=== PATIENT | female | born 1980 | race Caucasian/White ===

== ENCOUNTER 2016-12-16 10:05 | Day surgery (SDC) | payer OTHER ==
[2016-12-16 10:10] VITALS: BMI 33.3
[2016-12-16] MEDS ORDERED: ONDANSETRON 4 MG/2 ML VIAL IVPUSH ONE (11:06)
[2016-12-16] MEDS ORDERED: SODIUM CHLORIDE 1,000 ML IV STA (11:06)
--- NOTE | 2016-12-16 11:49 | PDOC ---
History of Present Illness - General History Source: Patient Exam Limitations: No Limitations - History of Present Illness Initial Comments: 12/16/16 11:49 HPI: This 36 year old obese female with c/o RUQ abd pain, nausea, vomiting, for 4 days. She denies fever, chills, diarrhea, constipation, headache, flu like symptoms. She ate on friday macaroni salad and later that evening developed nausea and vomiting. She has been eating small bits at a time and had last vomint this morning. Chief Compliant: RUQ pain, n, v Pain location:pain Duration:4 days Modifying factors:none Quality:cramp Radiating: Severity: Time: PMH: c section 4 months ago FH: Pt has not recently traveled outside the country in the last 30 days. Pt has not been in contact with people who have traveled out of the country, in contact with people who have been ill with fever, n, v, d. SH: smoking use: NONE illicit drug use: NONE alcohol use: NONE PSH: Home med use noted on DEC Allergies:shellfish Immunizations: PCP: does not have one PROFESSOR/NURSE ANESTHETIST: LMP:2/7 G P : <Maxine Muhammad - Last Filed: 12/16/16 15:59> <Franco Campbell - Last Filed: 12/16/16 20:39> - General Chief Complaint: Pain, Acute Stated Complaint: VOMITING, ABD PAIN, BACK PAIN Time Seen by Provider: 12/16/16 11:01 Past History - Past Medical History Asthma: No Cancer: No Cardiac Disorders: No Diabetes: No HTN: No Seizures: No Thyroid Disease: No Other medical history: PT DENIES MEDICAL HX - Psycho/Social/Smoking Cessation Hx Anxiety: No Suicidal Ideation: No Smoking Status: No Smoking History: Never smoked Have you smoked in the past 12 months: No Number of Cigarettes Smoked Daily: 0 Hx Alcohol Use: No Drug/Substance Use Hx: No Hx Substance Use Treatment: No <Maxine Muhammad - Last Filed: 12/16/16 15:59> <Franco Campbell - Last Filed: 12/16/16 20:39> - Past Medical History Allergies/Adverse Reactions: Allergies Allergy/AdvReac Type Severity Reaction Status Date / Time shellfish derived Allergy Mild Rash Verified 12/16/16 10:10 Home Medications: Ambulatory Orders NK [No Known Home Medication] 12/16/16 Review of Systems - Review of Systems Able to Perform ROS?: Yes Comments:: 12/16/16 11:53 General statement: " I have abd pain and n, v" Hematology: neg history of bleeding/blood thinners Skin: Neg for lesions, rash, bruising. HEENT: Neg symptoms Respiratory: Neg SOB or difficulty in breathing Cardiac: Neg chest pain GI: + RUQ pain, with n/v, Last BM this morning and was formed and of normal consistancy. : Neg problems on voiding MS: Neg for joint pain/stiffness, no edema Neuro: Neg for LOC, weakness, Endocrine: Neg for excess thirst/hunger, cold/heat intolerance, excess sweating Allergies: Neg for drug allergies <Maxine Muhammad - Last Filed: 12/16/16 15:59> *Physical Exam - Vital Signs Last Vital Signs Temp Pulse Resp BP Pulse Ox 97.5 F L 73 16 130/80 97 12/16/16 10:08 12/16/16 10:08 12/16/16 10:08 12/16/16 10:08 12/16/16 10:08 - Physical Exam Comments: 12/16/16 11:54 General Appearance: This well appearing 36 steven old female V/S: hemodynamically stable, afebrile Skin: WNL of pt's skin color, no signs of pallor, mottling, cyanosis Head:symmetrical Eyes: EOM's intact, PERRLA Ears: denies pain Nose: patent Throat: lips, teeth, gums, tongue, buccal mucos pink and moist Lungs: Chest symmetry equal. Cap refill <3 seconds. Lung sounds clear Cardiac: PMI at R 4MCL space, pos S1 and S2, regular rate. Abdomen: Soft, round, mildly tender to the RUQ area : Not observed Muscularskeletal: Gait steady, ambulated in to ER, no edema +PMS Neuro: AAOx3, cognitively intact, speech clear and appropriate. <Maxine Muhammad - Last Filed: 12/16/16 15:59> - Vital Signs Last Vital Signs Temp Pulse Resp BP Pulse Ox 97.5 F L 73 16 130/80 97 12/16/16 10:08 12/16/16 10:08 12/16/16 10:08 12/16/16 10:08 12/16/16 10:08 <Franco Campbell - Last Filed: 12/16/16 20:39> ED Treatment Course - LABORATORY CBC & Chemistry Diagram: 12/16/16 11:37 12/16/16 11:37 - RADIOLOGY Radiology Studies Ordered: Category Date Time Status GALLBLADDER US [US] Stat Ultrasound 12/16/16 11:06 Ordered <Maxine Muhammad - Last Filed: 12/16/16 15:59> - LABORATORY CBC & Chemistry Diagram: 12/16/16 11:37 12/16/16 11:37 - ADDITIONAL ORDERS Additional order review: Laboratory Results 12/16/16 12/16/16 12/16/16 11:37 11:37 11:33 Sodium 142 Potassium 4.1 Chloride 108 H Carbon Dioxide 24 Anion Gap 10 BUN 8 D Creatinine 0.8 D Creat Clearance w eGFR > 60 Random Glucose 91 D Calcium 8.9 Total Bilirubin 0.3 D Direct Bilirubin 0.1 AST 12 L D ALT 22 Alkaline Phosphatase 91 Total Protein 7.3 Albumin 4.0 D Lipase 120 Serum , Qual Negative 12/16/16 11:37 RBC 5.14 D MCV 75.9 L MCHC 32.0 RDW 14.5 MPV 8.3 Neutrophils % 78.7 Lymphocytes % 16.3 D Monocytes % 3.9 Eosinophils % 0.4 Basophils % 0.7 - Medications Given in the ED: ED Medications Discontinued Medications Generic Name Dose Route Start Last Admin Trade Name Freq PRN Reason Stop Dose Admin Sodium Chloride 1,000 mls @ 1,000 mls/hr 12/16/16 11:06 12/16/16 11:40 Normal Saline - IV 12/16/16 12:05 1,000 mls/hr ASDIR STA Administration Ibuprofen 400 mg 12/16/16 14:47 12/16/16 15:11 Motrin - PO 12/16/16 14:48 400 mg ONCE ONE Administration Ondansetron HCl 4 mg 12/16/16 11:06 12/16/16 11:40 Zofran Injection IVPUSH 12/16/16 11:07 4 mg ONCE ONE Administration <Franco Campbell D - Last Filed: 12/16/16 20:39> Medical Decision Making - Medical Decision Making 12/16/16 11:55 This 36 yr old female with c/o RUQ pain, n, v DD: r/o gall stones or cholelithiasis 1. GB u/s 2. Labs 3. UA 4. NPO, IVF 12/16/16 14:44 GB u/s reveals multiple gallstones with some mild thickening but no dilatation to the CBD Pt states nausea subsided but now has headache. Motrin prescribed. Surgical consult called into Dr. Ortiz to evaluate pt JULIETA Hanna seen pt and will contact Dr. Ortiz to see pt. 12/16/16 16:00 Dr. Ortiz has seen the patient and the patient will be admitted to observation admission under him for evaluation of her right upper quadrant abdominal pain and gallstones. <Maxine Muhammad - Last Filed: 12/16/16 15:59> *DC/Admit/Observation/Transfer - Discharge Dispostion Admit: Yes <Maxine Muhammad - Last Filed: 12/16/16 15:59> - Discharge Dispostion Admit: Yes <Franco Campbell - Last Filed: 12/16/16 20:39> Diagnosis at time of Disposition: Gallstones - Discharge Dispostion Condition at time of disposition: Stable
[2016-12-16 11:53] LABS: BASOPHIL 0.7 % (0-2.0); EOSINOPHIL 0.4 % (0-4.5); MCH 24.3 pg (25.7-33.7); MEAN CELL VOLUME 75.9 fl (80-96); MEAN PLT VOLUME 8.3 fl (7.5-11.1); NEUTROPHILS 78.7 % (42.8-82.8); PLATELET COUNT 385 K/MM3 (134-434); RDW 14.5 % (11.6-15.6); WHITE BLOOD COUNT 10.8 K/mm3 (4.0-10.0)
[2016-12-16 12:08] LABS: ALK PHOS 91 U/L (45-117); ANION GAP 10 (8-16); BILIRUBIN,DIRECT 0.1 mg/dL (0.0-0.2); BILIRUBIN,TOTAL 0.3 mg/dL (0.2-1.0); CALCIUM 8.9 mg/dL (8.5-10.1); CO2 24 mmol/L (21-32); CREATININE 0.8 mg/dL (0.55-1.02); GLUCOSE,RANDOM 91 mg/dL (74-106); SGOT/AST 12 U/L (15-37); SGPT/ALT 22 U/L (12-78); TOT PROT 7.3 g/dl (6.4-8.2)
[2016-12-16] MEDS ORDERED: IBUPROFEN 400 MG TABLET (FP) PO ONE ×2 (14:47→15:12)
[2016-12-16] MEDS ORDERED: SODIUM CHLORIDE 1,000 ML IV SCH (15:00)
--- NOTE | 2016-12-16 15:51 | HP ---
Admitting History and Physical - Admission History of Present Illness: The patient is a 36 yo female who present to the ER with complaints of upper abd pain, nausea and emesis since Friday night. She has no prior history of these symptoms and wasn not awre that she had gallstones. Her pain improved but she continued to vomit. While is the ER she has been treated with anti-emetics and feels better, she is having mild pain symptoms. History Source: Patient Limitations to Obtaining History: No Limitations - Past Medical History Cardiovascular: No: Deep Vein Thrombosis Pulmonary: No: Asthma, Bronchitis Gastrointestinal: No: Constipation, GERD Renal/: No: Hematuria, Renal Calculi, UTI ...: No Heme/Onc: No: Bleeding Disorder - Past Surgical History Past Surgical History: Yes: Additional Past Surgical History: breast reduction/liposuction - Smoking History Smoking history: Never smoked Have you smoked in the past 12 months: No Aproximately how many cigarettes per day: 0 - Alcohol/Substance Use Hx Alcohol Use: No Home Medications - Allergies Allergies/Adverse Reactions: Allergies Allergy/AdvReac Type Severity Reaction Status Date / Time shellfish derived Allergy Mild Rash Verified 12/16/16 10:10 - Home Medications Home Medications: Ambulatory Orders NK [No Known Home Medication] 12/16/16 Review of Systems - Review of Systems Constitutional: denies: Chills, Fever Neck: denies: Decreased ROM, Pain on Movement Cardiovascular: denies: Chest Pain, Palpitations Respiratory: reports: Cough (had a cough and fever last week which have improved.) Gastrointestinal: reports: Abdominal Pain (upper abd/RUQ gling to back), Nausea , Vomiting, Vomiting Blood Genitourinary: denies: Burning, Dysuria Musculoskeletal: denies: Extremity Pain, Joint Swelling Neurological: denies: Headache, Seizure Hematology/Lymphatic: denies: Easily Bruised, Excessive Bleeding Physical Examination Vital Signs: Vital Signs Temperature 97.5 F L 12/16/16 10:08 Pulse Rate 73 12/16/16 10:08 Respiratory Rate 16 12/16/16 10:08 Blood Pressure 130/80 12/16/16 10:08 O2 Sat by Pulse Oximetry (%) 97 12/16/16 10:08 Constitutional: Yes: Well Nourished, Calm Eyes: Yes: WNL, Conjunctiva Clear, EOM Intact HENT: Yes: WNL, Atraumatic, Normocephalic Neck: Yes: WNL, Supple, Trachea Midline Cardiovascular: Yes: WNL, Regular Rate and Rhythm Respiratory: Yes: WNL, Regular, CTA Bilaterally Gastrointestinal: Yes: WNL, Soft, Tenderness (RUQ with deep palpation). No: Distention, Tenderness, Rebound Extremities: No: Calf Tenderness, Deformity Edema: No Neurological: Yes: WNL, Alert, Oriented ...Motor Strength: LUE, LLE, RUE, RLE Psychiatric: Yes: WNL, Alert, Oriented Labs: CBC, BMP 12/16/16 11:37 12/16/16 11:37 Hepatic Panel Total Bilirubin 0.3 mg/dL (0.2-1.0) D 12/16/16 11:37 Direct Bilirubin 0.1 mg/dL (0.0-0.2) 12/16/16 11:37 AST 12 U/L (15-37) L D 12/16/16 11:37 ALT 22 U/L (12-78) 12/16/16 11:37 Alkaline Phosphatase 91 U/L (45-117) 12/16/16 11:37 Albumin 4.0 g/dl (3.4-5.0) D 12/16/16 11:37 Laboratory Tests 12/16/16 11:37 Serum , Qual Negative Imaging - Results Ultrasound: Report Reviewed (US- multiple gallstones ? borderline thickness) Problem List - Problems (1) Biliary colic Assessment/Plan: Admit to the surgical service and the patient agrees to a laparocopic cholecystectomy on 12/17. Continue npo/IV hydration IV antiemetics GI/DVT ppx IV/oral pain medication PT seen by myself and Dr. Ortiz Code(s): K80.50 - CALCULUS OF BILE DUCT W/O CHOLANGITIS OR CHOLECYST W/O OBST
[2016-12-16] MEDS ORDERED: ACETAMINOPHEN 325 MG TABLET (FP) PO PRN (15:59)
[2016-12-16] MEDS ORDERED: ONDANSETRON 4 MG/2 ML VIAL IVPB PRN (15:59)
[2016-12-16] MEDS ORDERED: DEXTROSE 5%-0.45% SALINE 1,000 ML IV SCH (16:00)
[2016-12-16] MEDS ORDERED: morphine CARPU-JECT 2 MG/1 ML DISP.SYRIN IVPUSH PRN (16:05)
[2016-12-16] MEDS ORDERED: FAMOTIDINE 20 MG/50 ML IVPB 50 ML IVPB ONE (21:53)
[2016-12-16] MEDS ORDERED: HEPARIN NA (PORCINE) 5,000 UNITS/ML 1ML VIAL ONE (21:53)
[2016-12-16] MEDS ORDERED: ONDANSETRON 4 MG/2 ML VIAL ONE (21:53)
[2016-12-16] MEDS ORDERED: ZOLPIDEM TARTRATE 5 MG TABLET PO PRN (22:00)
[2016-12-16] MEDS ORDERED: FAMOTIDINE 20 MG/50 ML IVPB 50 ML IVPB SCH (22:00)
[2016-12-16] MEDS: HEPARIN NA (PORCINE) 5,000 UNITS/ML 1ML VIAL SQ SCH (22:10)
[2016-12-17] MEDS ORDERED: HEPARIN NA (PORCINE) 5,000 UNITS/ML 1ML VIAL ONE (06:16)
[2016-12-17] MEDS: HEPARIN NA (PORCINE) 5,000 UNITS/ML 1ML VIAL SQ SCH (06:25)
--- NOTE | 2016-12-17 09:37 | PN ---
Progress Note (short form) - Note Progress Note: Patient seen and examined. Patient is still having some RUQ/epigastric abdominal pain, but the pain is tolerable. She has remained NPO. She is having some mild nausea, but no more episodes of vomiting. Last Vital Signs Temp Pulse Resp BP Pulse Ox 97.9 F 60 18 134/72 98 12/17/16 08:07 12/17/16 08:07 12/17/16 08:07 12/17/16 08:07 12/17/16 08:07 Gen: NAD, pleasant and cooperative Neuro: Alert and oriented Cardio: RRR Resp: CTA Abd: obese, soft, nondistended, tender to deep palp RUQ, epigastic region Ext: soft, nontender Problem List - Problems (1) Biliary colic Code(s): K80.50 - CALCULUS OF BILE DUCT W/O CHOLANGITIS OR CHOLECYST W/O OBST (2) Gallstones Assessment/Plan: Continue with plan for OR today for laparoscopic cholecystectomy with Dr. Ortiz Continue NPO/IV fluids Nausea control with IV antiemetics Pain control SCDs Code(s): K80.20 - CALCULUS OF GALLBLADDER W/O CHOLECYSTITIS W/O OBSTRUCTION
[2016-12-17] MEDS ORDERED: MIDAZOLAM HCL 2 MG/2 ML SINGLE DOSE VIAL ONE (15:49)
[2016-12-17] MEDS ORDERED: PROPOFOL 20 ML ONE (15:49)
[2016-12-17] MEDS ORDERED: ROCURONIUM BROMIDE 50 MG/5 ML VIAL ONE (15:49)
[2016-12-17] MEDS ORDERED: ceFAZolin SODIUM 1 GM VIAL ONE (16:05)
[2016-12-17] MEDS ORDERED: ceFAZolin SODIUM 1 GM VIAL IVPB ONE (16:07)
[2016-12-17] MEDS ORDERED: DEXAMETHASONE SOD PHOSPHATE 4 MG/1 ML VIAL ONE (16:32)
[2016-12-17] MEDS ORDERED: KETOROLAC TROMETHAMINE 30 MG/1 ML VIAL ONE (16:32)
[2016-12-17] MEDS ORDERED: BUPIVACAINE HCL/PF 0.5% (5MG/ML) 10 ML VIAL IJ ONE (16:45)
[2016-12-17] MEDS ORDERED: ePHEDrine SULFATE 50 MG/1 ML AMPULE ONE (16:54)
[2016-12-17] MEDS ORDERED: BUPIVACAINE HCL/PF 0.5% (5MG/ML) 10 ML VIAL ONE (17:25)
[2016-12-17] MEDS ORDERED: GLYCOPYRROLATE 0.2 MG/1 ML VIAL ONE (17:33)
[2016-12-17] MEDS ORDERED: NEOSTIGMINE METHYLSULFATE 0.5 MG/ML - 10 ML MDV ONE (17:33)
--- NOTE | 2016-12-17 17:39 | OP ---
Operative Note - Note: Operative Date: 12/17/16 Pre-Operative Diagnosis: biliary colic; cholelithiasis Operation: lap geovani Findings: chronic cholecystitis/cholelithiasis Surgeon: Kar Ortiz Ceramic Engineering Professor: Fallon Hanna Anesthesia: General Specimens Removed: gallbladder and contents Estimated Blood Loss (mls): 20
[2016-12-17] MEDS ORDERED: HYDROmorphone HCL CARPU-JECT 1 MG/1 ML DISP.SYRIN IVPUSH PRN (17:49)
[2016-12-17] MEDS ORDERED: ONDANSETRON 4 MG/2 ML VIAL IVPUSH PRN ×2 (17:49→22:48)
[2016-12-17] MEDS ORDERED: oxyCODONE HCL 5 MG TABLET PO PRN ×3 (17:50→22:49)
--- NOTE | 2016-12-17 17:50 | SURG ---
Surgery Field Pipe Lines Supervisor Note Field Pipe Lines Supervisor: Fallon Hanna PA-C Date of Service: 12/17/16 Diagnosis: biliary colic, cholelithiasis Procedure: laparoscopic cholecystectomy I was present for the entirety of the operative procedure. For further detail, please refer to operative report. Visit type - Case Type Case Type: ED Admission - Emergency Emergency Visit: Yes ED Registration Date: 12/16/16 Care time: The patient presented to the Emergency Department on the above date and was hospitalized for further evaluation of their emergent condition. - New patient This patient is new to me today: No - Critical Care Critical Care patient: Yes Total Critical Care Time: 20
[2016-12-17] MEDS ORDERED: LACTATED RINGERS SOLUTION 1,000 ML IV SCH (18:00)
[2016-12-17] MEDS ORDERED: SODIUM CHLORIDE 1,000 ML IV SCH (18:14)
[2016-12-17] MEDS ORDERED: ACETAMINOPHEN 325 MG TABLET (FP) PO PRN (18:14)
[2016-12-17] MEDS ORDERED: ONDANSETRON 4 MG/2 ML VIAL IVPB PRN ×2 (18:14→22:49)
[2016-12-17] MEDS ORDERED: morphine CARPU-JECT 2 MG/1 ML DISP.SYRIN IVPUSH PRN ×2 (18:14→22:49)
--- NOTE | 2016-12-17 21:30 | EKG ---
Test Reason : Blood Pressure : / mmHG Vent. Rate : 056 BPM Atrial Rate : 056 BPM P-R Int : 134 ms QRS Dur : 092 ms QT Int : 426 ms P-R-T Axes : 015 034 041 degrees QTc Int : 411 ms SINUS BRADYCARDIA OTHERWISE NORMAL ECG NO PREVIOUS ECGS AVAILABLE Confirmed by ERVIN MEDELLIN MD ([id number]) on 12/17/2016 9:30:18 PM Referred By: Confirmed By:ERVIN MEDELLIN MD
[2016-12-17] MEDS ORDERED: HEPARIN NA (PORCINE) 5,000 UNITS/ML 1ML VIAL SQ SCH (22:00)
[2016-12-17] MEDS ORDERED: ZOLPIDEM TARTRATE 5 MG TABLET PO PRN (22:00)
[2016-12-18] MEDS ORDERED: ACETAMINOPHEN 325 MG TABLET (FP) PO PRN (01:02)
[2016-12-18] MEDS: oxyCODONE HCL 5 MG TABLET PO PRN ×2 (01:08→07:45)
[2016-12-18] MEDS ORDERED: HEPARIN NA (PORCINE) 5,000 UNITS/ML 1ML VIAL SQ SCH (06:00)
--- NOTE | 2016-12-18 08:25 | PN ---
Progress Note, Physician Chief Complaint: Pt. pain controlled, no GA complaints. - Current Medication List Current Medications: Active Medications Acetaminophen (Tylenol -) 650 mg PO Q4H PRN PRN Reason: FEVER Heparin Sodium (Porcine) (Heparin -) 5,000 unit SQ TID JB Last Admin: 12/18/16 06:08 Dose: 5,000 unit Hydromorphone HCl (Dilaudid Injection -) 0.5 mg IVPUSH [id number] PRN PRN Reason: PAIN Stop: 12/20/16 17:50 Last Admin: 12/17/16 19:15 Dose: 0.5 mg Lactated Ringer's (Lactated Ringers Solution) 1,000 mls @ 125 mls/hr IV ASDIR JB Sodium Chloride (Normal Saline -) 1,000 mls @ 125 mls/hr IV ASDIR JB Morphine Sulfate (Morphine Injection -) 2 mg IVPUSH Q3H PRN PRN Reason: PAIN LEVEL 6-10 Last Admin: 12/18/16 06:04 Dose: 2 mg Ondansetron HCl (Zofran Injection) 4 mg IVPUSH Q6H PRN PRN Reason: NAUSEA AND/OR VOMITING Ondansetron HCl (Zofran Injection) 4 mg IVPB Q6H PRN PRN Reason: NAUSEA AND/OR VOMITING Oxycodone HCl (Roxicodone -) 5 mg PO Q6H PRN PRN Reason: PAIN LEVEL 1-5 Oxycodone HCl (Roxicodone -) 10 mg PO Q6H PRN PRN Reason: PAIN LEVEL 6-10 Last Admin: 12/18/16 07:45 Dose: 10 mg Zolpidem Tartrate (Ambien -) 5 mg PO HS PRN PRN Reason: Insomnia - Objective Vital Signs: Vital Signs Temperature 98.4 F 12/18/16 05:40 Pulse Rate 73 12/18/16 05:40 Respiratory Rate 18 12/18/16 05:40 Blood Pressure 120/64 12/18/16 05:40 O2 Sat by Pulse Oximetry (%) 100 12/17/16 21:00 Constitutional: Yes: Well Nourished, No Distress, Calm Neurological: Yes: WNL, Alert, Oriented ...Motor Strength: WNL Labs: CBC, BMP 12/16/16 11:37 12/16/16 11:37 Assessment/Plan POD#1 s/p Laparoscopic cholecystectomy under GA. Doing well. D/C from anesthesia care.
--- NOTE | 2016-12-18 09:10 | DS ---
Physical Exam: SUBJECTIVE: Patient seen and examined. Patient is doing well, admits having some pain at port site, but pain is controlled with oral pain medication. She has been tolerating her diet, has been urinating without issue, and has been OOB. She states she has had some nausea, but this is improving. She denies fever/chills/vomiting. OBJECTIVE: Vital Signs Temperature 98.4 F 12/18/16 05:40 Pulse Rate 73 12/18/16 05:40 Respiratory Rate 18 12/18/16 05:40 Blood Pressure 120/64 12/18/16 05:40 O2 Sat by Pulse Oximetry (%) 100 12/17/16 21:00 PHYSICAL EXAM GENERAL: The patient is awake, alert, and fully oriented, in no acute distress. HEAD: Normal with no signs of trauma. EYES: Sclera anicteric, conjunctiva clear. ENT: Moist mucous membranes. NECK: Trachea midline, full range of motion, supple. LUNGS: Breath sounds equal, clear to auscultation bilaterally, no wheezes, no crackles, no accessory muscle use. HEART: Regular rate and rhythm, S1, S2 without murmur, rub or gallop. ABDOMEN: Soft, nondistended, normoactive bowel sounds, mild tenderness with palpation around port sites, no guarding, no rebound. EXTREMITIES: 2+ pulses, warm, well-perfused, no edema. NEUROLOGICAL: Normal speech, gait not observed. PSYCH: Normal mood, normal affect. SKIN: Warm, dry, normal turgor, no rashes or lesions noted. LABS CBC,CMP CBC, BMP 12/16/16 11:37 12/16/16 11:37 Hepatic Panel Total Bilirubin 0.3 mg/dL (0.2-1.0) D 12/16/16 11:37 Direct Bilirubin 0.1 mg/dL (0.0-0.2) 12/16/16 11:37 AST 12 U/L (15-37) L D 12/16/16 11:37 ALT 22 U/L (12-78) 12/16/16 11:37 Alkaline Phosphatase 91 U/L (45-117) 12/16/16 11:37 Albumin 4.0 g/dl (3.4-5.0) D 12/16/16 11:37 HOSPITAL COURSE: Date of Admission:12/17/16 Date of Discharge: 12/18/16 The patient is a 36 yo female who presented to the ED complaining of upper abd pain, nausea and vomiting. She had an US of her gallbladder and was found to have multiple gallstones and borderline thickness of the gallbladder wall. After consent was obtained, she was taken to the OR for a laparoscopic cholecystectomy with Dr. Ortiz on 12/17/16. The operation proceeded as planned without complication, see operative report for complete detail. Following the operation, the patient was admitted to the Med-Surg Unit. Now, POD#1 s/p laparoscopic cholecystectomy, the patient's pain is controlled with PO pain medication, she is ambulating without assistance, urinating without issue and tolerating a regular diet. DVT prophylaxis was achieved with SCDs, SC heparin, and early ambulation. The discharge instructions and an oral pain management plan were reviewed with the patient. It was felt the patient was ready for discharge with instructions to follow up with Dr. Ortiz in one week. Above plan discussed with Dr. Ortiz and agreed. Minutes to complete discharge: 30 Visit type - Case Type Case Type: ED Admission
[2016-12-18 10:51] VITALS: BP 143/76; PULSE 87; TEMP 98
--- NOTE | 2016-12-18 19:49 | OP ---
DATE OF OPERATION: 12/17/2016 PREOPERATIVE DIAGNOSIS: Chronic cholecystitis. Cholelithiasis. PROCEDURE: Laparoscopic cholecystectomy. SURGEON: Kar Ortiz M.D. STRUCTURAL DRAFTSMAN: Radha Schwartz ANESTHESIA: General. OPERATIVE FINDINGS: There was cholecystitis and cholelithiasis. The rest of the findings were unremarkable. PROCEDURE: The patient was placed on operating table in supine position, and after the induction of general anesthesia, the patient's abdomen was prepped with Chloraprep and draped in sterile fashion. A timeout was taken, and pneumoperitoneum was established above the umbilicus using a Brennan cannula. Additional 11-mm subxiphoid and lateral 5-mm ports were placed, and laparoscopy carried out, and the previously noted findings were observed. The gallbladder was placed on lateral retraction, dissection begun at the triangle of Calot, where the cystic duct was identified using blunt dissection. It was dissected proximally and distally . The cystic artery was similarly identified and dissected, and critical view of safety was taken. The duct, and then artery were sequentially divided after being clipped twice proximally and distally with 10 mm clips. Next, the gallbladder was removed from the liver bed in a retrograde fashion using the electrocautery. A posterior branch of the cystic artery was divided using the Endoshears after being clipped with 10-mm clips. The gallbladder was then removed from the edge of the liver, placed in an Endocatch, and brought out through the subxiphoid port. Pneumoperitoneum was re-established, and hemostasis was checked and noted to be good. All ports were then removed under laparoscopic vision with evidence of bleeding from the port sites, and the pneumoperitoneum evacuated. The port sites were infiltrated with 0.5% Marcaine ,and the defect at the umbilicus closed with a single 2-0 Vicryl [id number] suture. The port site skin incisions were reapproximated with 4-0 Vicryl in a subcuticular fashion, Steri-Strips and band-aid dressings were placed, and the procedure terminated at this point. The patient was aroused from general anesthesia and transferred to the postanesthesia care unit in stable condition, awake and alert. Estimated blood loss 5 mL. Replacements crystalloid. Drains none. Specimen: gallbladder and contents to pathology. I, Kar Ortiz, was physically present in the operating room from the time the patient was placed on the operating room table until she was transferred to the post anesthesia care unit under my accompaniment. MD ANETA Goodrich/[id number]
--- NOTE | 2016-12-19 13:47 | PATH ---
Surgical Pathology Report Patient Name: MARKUS URBINA [facility]. Rec. #: [id number] /Age/Gender: 1980 (Age: 36) / F Account: [id number] Location: AMBULATORY SURG Taken: 12/17/2016 Received: 12/18/2016 Reported: 12/19/2016 Physicians: Kar Ortiz MD Specimen(s) Received GALLBLADDER Clinical History Biliary colic Final Diagnosis GALLBLADDER, CHOLECYSTECTOMY: EARLY ACUTE AND CHRONIC CHOLECYSTITIS, CHOLELITHIASIS AND CHOLESTEROLOSIS. Electronically Signed Johnathan Payne M.D. Gross Description Received in formalin, labeled "gallbladder" is an 8.5 x 3.0 x 3.0 cm gallbladder with a 0.2 cm in length portion of cystic duct attached. The outer surface is ceballos-green and varies from smooth to shaggy. The lumen contains green, tenacious bile as well as numerous brown, multifaceted choleliths averaging 1.3 cm in greatest dimension. The mucosa is dark green with gold cholesterol stippling. The wall of the gallbladder averages 0.1 cm in thickness. Category Development Analyst sections are submitted in one cassette. /12/18/201612/18/2016
== END 2016-12-18 15:04 | disposition home or self-care (01) ==
LOC: JER 10:05 → JERBED 20:43 → UNDOADMOB 20:43 → JASUSAT 12-17 17:46 → SUATTDRO 12-17 17:46 → J6S 12-17 20:04 → JASUSAT 12-18 15:04
PROVIDERS: ATTEND Surgery
PROC: 0FT44ZZ Resection of Gallbladder, Percutaneous Endoscopic Approach (ICD-10-PCS; principal; 2016-12-17 15:00)
DX: K80.10 Calculus of gallbladder with chronic cholecystitis without obstruction (principal)
CPT/HCPCS: 36415; 76705-TC; 80053; 80076; 83690; 84703; 85025; 86850; 86900; 86901; 88304-TC; 93005; 93010; 94760; 99285-25; J1644